=== PATIENT | female | born 1985 ===

== ENCOUNTER 2016-11-04 09:04 | Emergency (ER) | payer OTHER ==
[2016-11-04 09:07] VITALS: BMI 20.5
[2016-11-04 09:10] VITALS: BP 107/72; PULSE 112; RESP 16; TEMP 98.2
[2016-11-04 09:16] VITALS: O2SAT 98
--- NOTE | 2016-11-04 09:59 | ED PDOC ---
HPI: CCC, URI, Sore Throat Time Seen by Provider: 11/04/16 09:38 Chief Complaint (Nursing): ENT Problem Chief Complaint (Provider): Sore throat History Per: Patient History/Exam Limitations: no limitations Have you had recent travel within the past 21 days to any of the following countries: [place], [place], [place] or [place]?: No Onset/Duration Of Symptoms: Days (3) Current Symptoms Are (Timing): Still Present Location Of Pain: Throat Associated Symptoms: Fever (Subjective), Sore Throat. denies: Cough, Sputum, Neck Pain, Sinus Drainage, Myalgias, Nasal Congestion, Nausea, Vomiting, Diarrhea Ear Symptoms: Bilateral: None Additional Complaint(s): Pt reports sore throat and painful swallowing X 3 days, subjective fever. Denies cough, SOB, runny nose. Past Medical History Reviewed: Nursing Documentation, Vital Signs Vital Signs: Last Vital Signs Temp 98.2 F 11/04/16 09:07 Pulse 112 H 11/04/16 09:07 Resp 16 11/04/16 09:07 BP 107/72 11/04/16 09:07 Pulse Ox 98 11/04/16 10:01 - Medical History PMH: No Chronic Diseases - Family History Family History: States: No Known Family Hx - Home Medications Home Medications: Ambulatory Orders Medication Instructions Recorded Acetaminophen with Codeine 1 tab PO Q6 PRN #20 tab 05/31/14 [Tylenol with Codeine No. 3 300 mg-30 mg] Triamcinolone Acetonide [Oralone] 0.1 swa TOP BID #1 bottle 05/31/14 Amoxicillin 875 mg PO BID #14 tablet 11/04/16 Naproxen [Naprosyn] 500 mg PO BID PRN #15 tablet 11/04/16 - Allergies Allergies/Adverse Reactions: Allergies Allergy/AdvReac Type Severity Reaction Status Date / Time No Known Allergies Allergy Verified 11/04/16 09:14 Review of Systems Constitutional: Positive for: Fever, Sweats. Negative for: Chills ENT: Positive for: Throat Pain. Negative for: Ear Pain, Ear Discharge, Nose Pain, Nose Discharge, Nose Congestion, Mouth Pain, Mouth Swelling, Throat Swelling Respiratory: Negative for: Cough, Shortness of Breath Gastrointestinal: Negative for: Vomiting Skin: Negative for: Rash, Lesions Neurological: Negative for: Headache Physical Exam - Reviewed Nursing Documentation Reviewed: Yes Vital Signs Reviewed: Yes - Physical Exam Appears: Positive for: Well, No Acute Distress (Speaking full sentences, no drooling) Skin: Positive for: Normal Color, Warm, Dry ENT: Positive for: Pharynx Is (Clear), Pharyngeal Erythema, Tonsillar Swelling ( Minimal). Negative for: Nasal Congestion, Tonsillar Exudate Neck: Positive for: Normal, Painless ROM, Supple Cardiovascular/Chest: Positive for: Regular Rate, Rhythm Respiratory: Positive for: Normal Breath Sounds Neurologic/Psych: Positive for: Alert, Oriented - ECG O2 Sat by Pulse Oximetry: 98 Medical Decision Making Medical Decision Makin yo female with sore throat. - rapid Strep Disposition - Clinical Impression Clinical Impression: Pharyngitis - Disposition Disposition Time: 13:00 Condition: IMPROVED Additional Instructions: FOLLOW-UP WITH PMD WITHIN 2 DAYS FOR REEVALUATION. Prescriptions: Amoxicillin 875 mg PO BID #14 tablet Naproxen [Naprosyn] 500 mg PO BID PRN #15 tablet PRN Reason: Pain, Moderate (4-7) Instructions: Pharyngitis (ED)
== END 2016-11-04 13:24 | disposition home or self-care (01) ==
LOC: H.ER 09:04
DX: J02.9 Acute pharyngitis, unspecified (principal); R50.9 Fever, unspecified

== ENCOUNTER 2017-02-27 08:11 | Emergency (ER) | payer OTHER ==
[2017-02-27 08:11] VITALS: BMI 20.5
[2017-02-27 08:20] VITALS: BP 110/66; PULSE 81; RESP 18; TEMP 98.1; O2SAT 97
--- NOTE | 2017-02-27 10:19 | ED PDOC ---
HPI: Back Time Seen by Provider: 02/27/17 08:47 Chief Complaint (Nursing): Back Pain History Per: Patient History/Exam Limitations: no limitations Onset/Duration Of Symptoms: Gradual (2 days ago) Current Symptoms Are (Timing): Still Present Full Body Front + Back: 1 - left sided occurred after prolonged fixed position while viewing eclipse, worse with movement worse today no treatment Quality Of Discomfort: Sharp Severity: Moderate Previous Symptoms: Neck Pain Associated Symptoms: None Exacerbating Factor(s): Movement Additional History Per: Patient Additional Complaint(s): Pt c/o neck pain and stiffness x2-3 days. Denies taking medications. no f/c/n/t/ w/ no headache Past Medical History Reviewed: Historical Data, Nursing Documentation, Vital Signs Vital Signs: Last Vital Signs Temp 98.1 F 02/27/17 08:19 Pulse 81 02/27/17 08:19 Resp 18 02/27/17 08:19 BP 110/66 02/27/17 08:19 Pulse Ox 97 02/27/17 08:19 - Medical History PMH: No Chronic Diseases - Family History Family History: States: Unknown Family Hx - Living Arrangements Living Arrangements: With Family - Social History Current smoker - smoking cessation education provided: No - Immunization History Hx Tetanus Toxoid Vaccination: No Hx Influenza Vaccination: No Hx Pneumococcal Vaccination: No - Home Medications Home Medications: Ambulatory Orders Medication Instructions Recorded Acetaminophen with Codeine 1 tab PO Q6 PRN #20 tab 05/31/14 [Tylenol with Codeine No. 3 300 mg-30 mg] Triamcinolone Acetonide [Oralone] 0.1 swa TOP BID #1 bottle 05/31/14 Amoxicillin 875 mg PO BID #14 tablet 11/04/16 Naproxen [Naprosyn] 500 mg PO BID PRN #15 tablet 11/04/16 Cyclobenzaprine [Flexeril] 5 mg PO TID PRN #12 tab 02/27/17 - Allergies Allergies/Adverse Reactions: Allergies Allergy/AdvReac Type Severity Reaction Status Date / Time No Known Allergies Allergy Verified 11/04/16 09:14 Review of Systems ROS Statement: Except As Marked, All Systems Reviewed And Found Negative Constitutional: Negative for: Fever, Chills, Sweats Cardiovascular: Negative for: Chest Pain Respiratory: Negative for: Cough, Shortness of Breath Musculoskeletal: Positive for: Neck Pain Neurological: Negative for: Weakness, Numbness, Altered Mental Status, Headache , Dizziness Physical Exam - Reviewed Nursing Documentation Reviewed: Yes Vital Signs Reviewed: Yes - Physical Exam Appears: Positive for: Well, No Acute Distress Head Exam: Positive for: ATRAUMATIC, NORMAL INSPECTION, NORMOCEPHALIC Eye Exam: Positive for: Normal appearance, EOMI, PERRL ENT: Positive for: Pharynx Is (clear), TM Is/Are (nml bl). Negative for: Pharyngeal Erythema, Tonsillar Exudate, Tonsillar Swelling Neck: Positive for: Normal, Painless ROM, Supple, Pain On Movement Of Neck. Negative for: Decreased ROM, Limited ROM, Trachea Midline Cardiovascular/Chest: Positive for: Regular Rate, Rhythm Respiratory: Positive for: Normal Breath Sounds Pulses-Radial (L): 2+ Pulses-Radial (R): 2+ Back: Positive for: Normal Inspection, Muscle Spasm (left sternocleidomastoid). Negative for: L CVA Tenderness, R CVA Tenderness, Vertebral Tenderness Extremity: Positive for: Normal ROM. Negative for: Tenderness, Pedal Edema, Calf Tenderness, Deformity, Swelling Neurologic/Psych: Positive for: Alert, commercial pilot II-XII, Oriented, Mood/Affect (calm) , Gait (steady). Negative for: Motor/Sensory Deficits, Aphasia, Facial Droop - ECG O2 Sat by Pulse Oximetry: 97 Pulse Ox Interpretation: Normal - Progress ED Course And Treament: cervical spine xray 4 views no fx or dislocation no sts. sx markedly improved with toradol and flexeril. advise not to drive on flexeril advise close f/u with pmd. immediate return if worsening. pt leaves ambulatory and in good spirits Re-evaluation Time: 10:30 Condition: Improved Disposition - Clinical Impression Clinical Impression: Neck muscle strain - Patient ED Disposition Is Patient to be Admitted: No Counseled Patient/Family Regarding: Studies Performed, Diagnosis, Need For Followup, Rx Given - Disposition Referrals: [facility] [place] [Outside] (2 to 3 days) Disposition: Routine/Home Disposition Time: 10:10 Condition: GOOD Prescriptions: Cyclobenzaprine [Flexeril] 5 mg PO TID PRN #12 tab PRN Reason: Pain, Moderate (4-7) Instructions: Cervical Strain (DC) Forms: [employer] ([place]ian)
--- NOTE | 2017-02-27 13:09 | RAD ---
PROCEDURE: Cervical Spine Radiographs. HISTORY: Pain. COMPARISON: None. FINDINGS: BONES: Alignment maintained. No fracture. Dens Intact. DISC SPACES: Normal. SOFT TISSUES: Normal. No prevertebral soft tissue swelling. OTHER FINDINGS: None. IMPRESSION: Normal cervical spine radiographs
== END 2017-02-27 11:36 | disposition home or self-care (01) ==
LOC: H.ER 08:11
DX: S16.1XXA Strain of muscle, fascia and tendon at neck level, initial encounter (principal); X50.1XXA Overexertion from prolonged static or awkward postures, initial encounter
CPT/HCPCS: 72052; 81025; 96372; 99282; J1885